=== PATIENT | male | born 1970 | race Caucasian/White ===

== ENCOUNTER 2020-11-18 16:02 | Emergency (ER) | payer SELFPAY ==
[~2020-11-18] VITALS: Ht 149.9 cm; Wt 63.6 kg
[2020-11-18 16:05] VITALS: BP 124/88
[2020-11-18] MEDS ORDERED: ACETAMINOPHEN 325MG TABLET PO ONE (17:00)
[2020-11-18] MEDS ORDERED: DEXAMETHASONE 10 MG/ML VIAL IV ONE (17:00)
== END 2020-11-18 19:07 | disposition home or self-care (01) ==
LOC: ER 16:02
DX: U07.1 COVID-19 (principal); R03.0 Elevated blood-pressure reading, without diagnosis of hypertension
CPT/HCPCS: 71045; 87635; 93005; 96374; 99283; J1100